=== PATIENT | male | born 1975 | race Caucasian/White ===

== ENCOUNTER 2023-02-16 11:10 | Emergency (ER) | payer MEDICARE, SELFPAY ==
[2023-02-16 11:17] VITALS: BP 147/99; PULSE 62; RESP 18; TEMP 36.8; O2SAT 98
--- NOTE | 2023-02-16 11:46 | ED.EAR ---
HPI - Ear Problem General Chief complaint: Ear Stated complaint: chills/ears Time Seen by Provider: 02/16/23 11:30 Source: patient, RN notes reviewed and old records reviewed Mode of arrival: ambulatory Limitations: no limitations History of Present Illness HPI Narrative: 47 year old male who presents with complaints of bilateral ear pain and also some sore throat with some chills and sweats and stated known exposure to strep.Patient reports that he has had some ear pain for 1.5 weeks to his left ear and 2 day history of right ear pain with some chills and sweats noted today with no known fever. Patient has Crohn disease and is on Stelara to manage this condition.Patient has not taken any OTC medications for his complaints. MD Complaint: ear pain and other (pain to ears, throat pain) Location: bilateral Duration: intermittent Severity: moderate Discharge from ear: Reports no Treatment prior to arrival: none Related Data Home Medications Medication Instructions Recorded Confirmed ustekinumab 90 mg/mL subcutaneous 90 mg subcut MONTHLY 02/16/23 02/16/23 syringe (Stelara) zolpidem 10 mg tablet 10 mg PO HS 02/16/23 02/16/23 Allergies Allergy/AdvReac Type Severity Reaction Status Date / Time ciprofloxacin Allergy Intermediate Unknown Unverified 02/16/23 11:44 morphine Allergy Mild Unknown Unverified 02/16/23 11:44 Review of Systems Review of Systems: CONSTITUTIONAL:Reports malaise, chills, sweats, no known fever. EYES: Denies visual changes, redness, or discharge. ENT: Reports rhinorrhea, congestion, sinus pain,bilateral otalgia and sore throat. CARDIOVASCULAR: Denies chest pain, palpitations, or edema. RESPIRATORY: Reports no cough.? Denies dyspnea. GASTROINTESTINAL: Denies abdominal pain, nausea, vomiting, diarrhea SKIN: Denies rash or itching. MUSCULOSKELETAL: Denies myalgia. NEUROLOGIC: Denies headache. All systems reviewed & are unremarkable except as noted in HPI and below PMFSH Past Medical History Medical History (Updated 02/17/23 @ 09:33 by Ene Bowles NP) Crohn's disease not affecting current episode of care Surgical History Surgical History (Updated 02/17/23 @ 09:46 by Ene Bowles NP) H/O arthroscopic knee surgery H/O repair of left rotator cuff History of appendectomy History of colon surgery Comments At time of signature, agree with nursing past medical, surgical, social and family history. There is no relevant family history pertinent to the presenting complaint Exam Narrative: GENERAL: Well-appearing, well-nourished, and in no acute distress. HEAD: Normocephalic EYES: PERRLA, conjunctivae clear ENT: Nares clear, turbinates edematous and erythematous, clear discharge. Mucous membranes moist. Right TM red, left TM pearly davis with dull light reflex;Bilateral ear canals red and excoriated with no drainage noted or acute swelling, no tragal tenderness. Oropharynx erythematous without lesions. Tonsils not enlarged and without exudate, no drooling, no hoarseness, no trismus, uvula midline. NECK: Supple. No lymphadenopathy CHEST: Clear to auscultation, breath sounds equal. No wheezing, rhonchi, rales, or stridor. No respiratory distress, speaks in full sentences.no acute cough SAO2 98% on room air HEART: Regular rate and rhythm. No murmur heard. SKIN: Warm, dry, no rash. NEURO: Alert and oriented x3. PSYCH: Normal mood and affect Course Course Emergency Course: Patient is aware of diagnosis, understands and agrees to treatment plan.? Anticipatory guidance given.? Patient agrees to follow-up as directed and is aware of reasons to seek care at the emergency department. Portions of this record may have been created with voice recognition software Level of Care: Express Care Visit Vital Signs Vital signs: Vital Signs Temperature 36.8 C 02/16/23 11:17 Pulse Rate 62 02/16/23 11:17 Respiratory Rate 18 02/16/23 11:17 Blood Pressur
== END 2023-02-16 12:10 | disposition home or self-care (01) ==
PROVIDERS: Emergency Provider Registered Nurse; PCP Internal Medicine
DX: H60.313 Diffuse otitis externa, bilateral (principal); H65.01 Acute serous otitis media, right ear; K50.90 Crohn's disease, unspecified, without complications
CPT/HCPCS: 87081; 87880; 99203; G0463